=== PATIENT | male | born 1995 | race Caucasian/White ===

== ENCOUNTER 2021-05-28 21:13 | Emergency (ER) | payer BC ==
[~2021-05-28] VITALS: Ht 170.2 cm; Wt 98.7 kg
[2021-05-28 21:14] VITALS: BP 128/74
== END 2021-05-28 21:44 | disposition left against medical advice (07) ==
LOC: M ED 21:13
DX: Z53.21 Procedure and treatment not carried out due to patient leaving prior to being seen by health care provider (principal)